=== PATIENT | male | born 1975 | race Caucasian/White ===

== ENCOUNTER 2023-07-10 20:17 | Emergency (ER) | payer BC, SELFPAY ==
[2023-07-10 20:25] VITALS: BP 171/89
--- NOTE | 2023-07-10 21:28 | ED.GENMED ---
History of Present Illness
General
Chief Complaint: Musculo-Skeletal Complaint
Source: patient
Exam Limitations: none
Time Seen by Provider: 07/10/23 21:13
Travel History
Have you had any contact with someone who has COVID-19?: No
Do you have any symptoms of coronavirus? Fever > 100 degrees, chills, cough, shortness of breath, sore throat, loss of taste or smell, muscle aches, or headache?: No
History of Present Illness
History of Present Illness:
48-year-old male who presents with swelling and pain to the right knee. The patient states he was skiing in [place] about a month ago. He woke up the next day and he had a severely swollen knee. He was able to get home and tried to rest it with
ice and compression but states he did not do it long enough. The pain has been persistent. He states he tried to do a little bit squats and walk at the pain got worse and the knee blew up again. He provides a picture that shows a swollen patient
states it hurts mostly on the lateral aspect. He denies fevers. No vomiting.
Past History
Past History
ED Past Medical History: None
ED Past Surgical History: Orthopedic
Phy Exam
Physical Exam
Physical Exam:
CONSTITUTIONAL Vital signs reviewed, Patient alert and oriented to person, place and time. Well-appearing
HEAD atraumatic, normocephalic.
EYES eyelids normal to inspection, Extraocular muscles intact, Conjunctiva normal, Sclera normal.
NECK normal range of motion, Trachea midline, no jugular venous distention.
RESP no respiratory distress
BACK No obvious deformities
UPPER EXTREMITY Gross Range of motion normal, gross motor strength normal
LOWER EXTREMITY Gross motor strength normal. Right knee effusion noted, no warmth, no redness. No pain with valgus stress. No significant anterior drawer laxity
NEURO Speech normal, No focal motor deficits include, Pesotum coma scale 15, Memory normal, Cranial Nerves intact to screening exam.
SKIN Skin warm, dry, and normal in color.
PSYCHIATRIC Patient oriented to person place and time, Normal affect.
Course
Orders/Labs/Results
Orders:
Orders
07/10/23 21:28
Knee, Right 4 or More Views [CR Knee- Right 4 Or More View*] Urgent
Comment:
Reason For Exam: injury, swelling
07/10/23 23:55
Knee Immobilizer Right-Treatme ONCE
Vital Signs
Initial and Last Documented VS:
Initial Vital Signs
Temp Pulse Resp BP Pulse Ox
98.1 F 97 18 171/89 97
07/10/23 20:25 07/10/23 20:25 07/10/23 20:25 07/10/23 20:25 07/10/23 20:25
Last Documented Vital Signs
Temp Pulse Resp BP Pulse Ox
98.1 F 97 18 171/89 97
07/10/23 20:25 07/10/23 20:25 07/10/23 20:25 07/10/23 20:25 07/10/23 20:25
MDM/Problems Addressed
MDM/Problems Addressed:
Knee injury, knee effusion
*Radiology
Radiology exam reviewed: preliminary read by ED provider (No fracture identified)
*Pulse Oximetry
Patient hypoxic: no
*Critical Care Note
Total Time (30-74mins, 75-104mins- exclusive of procedures): Not Applicable
Data Reviewed
Source: patient
Patient Management
Escalation/DeEscalation of care consider admission/obs:
Outpatient orthopedic follow-up recommended. Knee immobilizer, crutches. Also recommended rest, ice and elevation
ED Attending Note
-
Portions of this chart may have been created with voice recognition software.� Occasional wrong word or��sound alike� substitutions may have occurred due to the inherent limitations of voice recognition software.
Discharge Plan
Departure
Patient Disposition: Home (Routine Discharge)
Date of Disposition: 07/10/23
Time of Disposition: 23:56
Patient with high blood pressure during this ER visit?: Yes
Discharge Problem:
Injury of knee
Instructions: Internal Derangement of the Knee (DC), Knee Immobilizer (DC), Swollen Joints (DC), BLOOD PRESSURE
Prescriptions:
No Action
Oxycodone
1 tab PO PRN PRN (Reason: pain)
Referrals:
Venu Gruber MD [Active] -
UNKNOWN - PT DOES,NOT KNOW [Family Provider] -
Activity Restrictions/Additional Instructions:
Please see orthopedics in the next 1 week for follow-up and reevaluation. Return immediately for fever, redness, increased swelling or any other concerns. Please ice it and rest your injured knee. Further workup should include an MRI
Interventions
Interventions:
*Risk Screen - Suicide Last Done: 07/10/23 20:25
*General Assessment Last Done: 07/10/23 20:25
*Neglect/Abuse Screening Last Done: 07/10/23 20:25
*ED COVID-19 Vaccine History Last Done: 07/10/23 20:25
ED-Musculoskeletal Assessment Last Done: 07/10/23 21:21
[2023-07-11 00:18] VITALS: BP 155/94
[2023-07-11 00:21] VITALS: BP 155/94
== END 2023-07-11 00:21 | disposition home or self-care (01) ==
LOC: EMR 20:17
PROVIDERS: EMERGENCY PHYSICIAN Emergency Medicine
DX: S89.91XA Unspecified injury of right lower leg, initial encounter (principal); X58.XXXA Exposure to other specified factors, initial encounter
CPT/HCPCS: 99283; 73564

== ENCOUNTER 2024-04-16 18:35 | Inpatient (IN) | payer BC, SELFPAY ==
[2024-04-16] VITALS (12 sets, daily range): BP systolic 93–161; BP diastolic 63–96; BMI 24.7
--- NOTE | 2024-04-16 11:43 | ED.GENMED ---
History of Present Illness
<HENRIETTA Thakkar - Last Filed: 04/16/24 15:59>
General
Chief Complaint: Abdominal Symptoms
Source: patient
Exam Limitations: none
Time Seen by Provider: 04/16/24 11:43
Nursing documentation reviewed up to this point in time: agreed with
History of Present Illness
History of Present Illness:
48-year-old male presents to the ER for evaluation of abdominal pain that woke him up around 5 AM. He reports pain is across his lower abdomen. He feels that he has to move his bowels but is unable to do so. He last moved his bowels yesterday.
He does have a history of alcohol use and stopped drinking on . He was diagnosed with' fibrosis of the liver.' He is on chronic oxycodone for history of spinal surgery/back pain.
Past History
<HENRIETTA Thakkar - Last Filed: 04/16/24 15:59>
Past History
ED Past Medical History: None
ED Past Surgical History: Orthopedic
Review of Systems
<HENRIETTA Thakkar - Last Filed: 04/16/24 15:59>
Review of Systems
Allergies reviewed?: Yes
All Other Systems: ROS reviewed and negative except as documented in HPI and ROS
Constitutional: Reports no symptoms; Denies fever, fatigue or chills
Respiratory: Reports no symptoms
Cardiac: Reports no symptoms
ABD/GI: Reports abdominal pain; Denies nausea or vomiting
: Reports no symptoms
Musculoskeletal: Reports no symptoms
Skin: Reports no symptoms
Neurological: Reports no symptoms
Psychiatric: Reports no symptoms
Phy Exam
<HENRIETTA Thakkar - Last Filed: 04/16/24 15:59>
General Physical Exam
General Presentation: no apparent distress
General age: appears stated age
General Skin: warm and dry
General Habitus: normal
General Mental: alert
General Hydration: appears well hydrated
Gastrointestinal Exam
Gastrointestinal Exam: non tender, soft and other (tender lower abdominal region )
Neurological Exam
Neurological Exam: alert and oriented x3
Musculoskeletal Exam
Musculoskeletal Exam: full ROM
Skin Exam
Skin Exam: normal color and warm/dry
Psychiatric Exam
Psychiatric Exam: normal mood/affect
Course
<HENRIETTA Thakkar - Last Filed: 04/16/24 15:59>
Orders/Labs/Results
Orders:
Orders
04/16/24 11:50
Urinalysis Reflex To Culture Urgent
Date Specimen was Collected: 04/16/24
Time Specimen was Collected: 15:02
Iohexol [Omnipaque] See Protocol PO NOW STA
04/16/24 11:52
CT Abd/pel W Iv And Oral Contr Urgent
Comment:
Reason For Exam: lower abd pain
IV Insert/Care/Rem.- Treatment PRN
0.9% Sodium Chloride 1000 ml [Nss] 1,000 ml IV BOLUS
04/16/24 11:53
HYDROmorphone [Dilaudid] 0.5 mg IV NOW STA
Ondansetron Injectable [Zofran] 4 mg IV NOW STA
04/16/24 11:55
Complete Blood Count/With Diff Urgent
Comprehensive Metabolic Panel Urgent
Lipase Urgent
04/16/24 13:36
Ondansetron Injectable [Zofran] 4 mg IV NOW STA
04/16/24 13:37
Ketorolac [Toradol] 15 mg IV NOW STA
04/16/24 15:01
Piperacillin/Tazo 3.375 Gram [Zosyn] 3.375 gram in 50 ml IV NOW
04/16/24 15:57
HYDROmorphone [Dilaudid] 1 mg IV NOW STA
Abnormal Lab Results
04/16/24
11:55
WBC 12.7 H 10^3/uL
(4.8-10.8)
Abs Immat Gran (auto) 0.1 H 10^3/uL
(0-0.05)
Absolute Neuts (auto) 11.2 H 10^3/uL
(1.4-6.5)
Absolute Lymphs (auto) 0.8 L 10^3/uL
(1.2-3.4)
Neutrophils % 88.5 H %
(42.2-75.2)
Lymphocytes % 6.5 L %
(20.5-51.1)
Carbon Dioxide 19 L mmol/L
(22-30)
Glucose 242 H mg/dl
(70-99)
Calcium 10.4 H mg/dl
(8.4-10.2)
Alkaline Phosphatase 221 H U/L
(38-126)
Albumin 5.2 H g/dl
(3.5-5.0)
04/16/24 11:55
04/16/24 11:55
Vital Signs
Initial and Last Documented VS:
Initial Vital Signs
Temp Pulse Resp BP Pulse Ox
99.1 F 100 20 118/63 98
04/16/24 11:25 04/16/24 11:25 04/16/24 11:25 04/16/24 11:25 04/16/24 11:25
Last Documented Vital Signs
Temp Pulse Resp BP Pulse Ox
99.0 F 86 20 151/90 100
04/16/24 15:28 04/16/24 15:28 04/16/24 14:00 04/16/24 15:28 04/16/24 15:28
Motor Lodge Clerk consulted with Physician
Motor [employer] Clerk consulted with physician?: Yes
Name of Physician Consulted: Wan
<Annetta Blas MD - Last Filed: 04/16/24 12:07>
Orders/Labs/Results
Orders:
Orders
04/16/24 11:50
Urinalysis Reflex To Culture Urgent
Date Specimen was Collected: 04/16/24
Time Specimen was Collected: 15:02
Iohexol [Omnipaque] See Protocol PO NOW STA
04/16/24 11:52
CT Abd/pel W Iv And Oral Contr Urgent
Comment:
Reason For Exam: lower abd pain
IV Insert/Care/Rem.- Treatment PRN
0.9% Sodium Chloride 1000 ml [Nss] 1,000 ml IV BOLUS
04/16/24 11:53
HYDROmorphone [Dilaudid] 0.5 mg IV NOW STA
Ondansetron Injectable [Zofran] 4 mg IV NOW STA
04/16/24 11:55
Complete Blood Count/With Diff Urgent
Comprehensive Metabolic Panel Urgent
Lipase Urgent
04/16/24 13:36
Ondansetron Injectable [Zofran] 4 mg IV NOW STA
04/16/24 13:37
Ketorolac [Toradol] 15 mg IV NOW STA
04/16/24 15:01
Piperacillin/Tazo 3.375 Gram [Zosyn] 3.375 gram in 50 ml IV NOW
04/16/24 15:57
HYDROmorphone [Dilaudid] 1 mg IV NOW STA
Abnormal Lab Results
04/16/24
11:55
WBC 12.7 H 10^3/uL
(4.8-10.8)
Abs Immat Gran (auto) 0.1 H 10^3/uL
(0-0.05)
Absolute Neuts (auto) 11.2 H 10^3/uL
(1.4-6.5)
Absolute Lymphs (auto) 0.8 L 10^3/uL
(1.2-3.4)
Neutrophils % 88.5 H %
(42.2-75.2)
Lymphocytes % 6.5 L %
(20.5-51.1)
Carbon Dioxide 19 L mmol/L
(22-30)
Glucose 242 H mg/dl
(70-99)
Calcium 10.4 H mg/dl
(8.4-10.2)
Alkaline Phosphatase 221 H U/L
(38-126)
Albumin 5.2 H g/dl
(3.5-5.0)
04/16/24 11:55
04/16/24 11:55
Vital Signs
Initial and Last Documented VS:
Initial Vital Signs
Temp Pulse Resp BP Pulse Ox
99.1 F 100 20 118/63 98
04/16/24 11:25 04/16/24 11:25 04/16/24 11:25 04/16/24 11:25 04/16/24 11:25
Last Documented Vital Signs
Temp Pulse Resp BP Pulse Ox
99.0 F 86 20 151/90 100
04/16/24 15:28 04/16/24 15:28 04/16/24 14:00 04/16/24 15:28 04/16/24 15:28
<HENRIETTA Thakkar - Last Filed: 04/16/24 15:59>
MDM/Problems Addressed
Differential Diagnosis Includes:
Not limited to diverticulitis, appendicitis, obstruction constipation
MDM/Problems Addressed:
48-year-old male presented to the ER complaining of abdominal pain. Patient presents very uncomfortable nonspecific general abdominal tenderness. He denies any recent fever or chills. He does have a history of chronic pain related to his back and
is on narcotics. 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
Patient presents with a temp of 99.1 denies any fever at home white count minimally elevated at 12.7.
Patient's blood sugar was found to be elevated to 42 he is not a diabetic his lipase is normal CAT scan however shows acute perforation of the sigmoid colon verbally reported by radiology with air and stool outside the colon. discussed with
Wan . IV Zosyn ordered. d/c with Colorectal surg DR Salazar.
<HENRIETTA Thakkar - Last Filed: 04/16/24 15:59>
*Radiology
Radiology exam reviewed: radiology read reviewed
*Pulse Oximetry
Patient hypoxic: no
*Critical Care Note
Total Time (30-74mins, 75-104mins- exclusive of procedures): Not Applicable
<HENRIETTA Thakkar - Last Filed: 04/16/24 15:59>
Patient Management
Discussion with other providers: Operations Research Group Manager (Colorectal surg, DR Salzaar )
ED Attending Note
<HENRIETTA Thakkar - Last Filed: 04/16/24 15:59>
-
Portions of this chart may have been created with voice recognition software.� Occasional wrong word or��sound alike� substitutions may have occurred due to the inherent limitations of voice recognition software.
<Annetta Blas MD - Last Filed: 04/16/24 12:07>
ED Attending Note
Patient seen and examined by attending physician: Yes
I performed the substantive portion of visit, reviewed & personally made and approve the management plan that is documented in note by myself or LIZ.: Yes
ED Attending Note:
Patient is lying on his side, moaning and screaming in pain. He is in no respiratory distress. He appears nontoxic. Awaiting blood work and CT.
Discharge Plan
Departure
Patient Disposition: Admit
Date of Disposition: 04/16/24
Time of Disposition: 15:58
Admit to: Med/Surg
Admit to doctor: hospitalist
Presentation/result/management discussed w/ accepting MD/DO: Hospitalist
Patient with high blood pressure during this ER visit?: Yes
Condition: Fair
Covid-19: Not Applicable
Discharge Problem:
Perforation of sigmoid colon
Prescriptions:
No Action
oxycodone 5 mg tablet
5 mg PO Q4HPRN PRN (Reason: pain - max dose 30mg/day)
Rx Instructions:
04/16/24: filled #180 tablets/30 days upply on 04/10/24 at [id number]
Referrals:
UNKNOWN - PT DOES,NOT KNOW [Family Provider] -
Interventions
Interventions:
*Risk Screen - Suicide Last Done: 04/16/24 12:00
*General Assessment Last Done: 04/16/24 11:25
*Neglect/Abuse Screening Last Done: 04/16/24 12:00
*ED COVID-19 Vaccine History Last Done: 04/16/24 12:00
KD-Applmz-Klucfknjsj Assessment Last Done: 04/16/24 12:00
Discharge Date and Time
Print Language: FRISIAN
[2024-04-16] MEDS: NSS 1000 IV ×2 (12:03→20:31)
[2024-04-16] MEDS: ZOFRAN 4 MG IV ×3 (12:04→19:50)
[2024-04-16] MEDS: DILAUDID 0.5 MG IV (12:07)
[2024-04-16] MEDS: OMNIPAQUE 50 ML PO (12:08)
[2024-04-16 12:12] LABS: % Basophils 0.5 % (0-2); % Eosinophils 0.2 % (0-6); % Immature Granulocytes 0.4 % (0-0.5); % Lymphocytes 6.5 % (20.5-51.1); % Monocytes 3.9 % (1.7-9.3); % Neutrophils 88.5 % (42.2-75.2); Absolute Basophils 0.1 10^3/uL (0-0.2); Absolute Immature Granulocytes 0.1 10^3/uL (0-0.05); Absolute Lymphocytes 0.8 10^3/uL (1.2-3.4); Absolute Monocytes 0.5 10^3/uL (0.1-0.6); Absolute Neutrophils 11.2 10^3/uL (1.4-6.5); Hematocrit 42.9 % (39.0-52.0); Hemoglobin 14.8 g/dL (13.0-18.0); Mean Corp Hgb Conc. 34.5 g/dL (33.0-37.0); Mean Corpuscular Hgb 29.8 pg (27.0-31.0); Mean Corpuscular Volume 86.3 fL (80.0-94.0); Mean Platelet Volume 8.9 fL (7.4-10.4); Nucleated Red Blood Cells % 0 % (-); Platelet Count 363 10^3/uL (130-400); Red Blood Cell Count 4.97 10^6/uL (4.70-6.10); Red Cell Dist. Width 11.5 % (11.5-14.5); White Blood Cell Count 12.7 10^3/uL (4.8-10.8)
[2024-04-16 12:21] LABS: ALT (SGPT) 43 U/L (0-50); AST (SGOT) 34 U/L (17-59); Albumin 5.2 g/dl (3.5-5.0); Alkaline Phosphatase 221 U/L (38-126); Blood Urea Nitrogen 16 mg/dl (9-20); Calcium 10.4 mg/dl (8.4-10.2); Carbon Dioxide 19 mmol/L (22-30); Chloride 101 mmol/L (98-107); Glucose 242 mg/dl (70-99); Lipase 90 U/L (23-300); Sodium 140 mmol/L (135-145); Total Bilirubin 1.1 mg/dl (0.2-1.3); eGFR > 60.00
[2024-04-16] MEDS: TORADOL 15 MG IV ×2 (13:42→19:13)
[2024-04-16] MEDS: ZOSYN 50 IV (15:21)
--- NOTE | 2024-04-16 16:03 | HPS.HSE ---
Family Physician
-
Family Physician: NOT KNOW UNKNOWN - PT DOES
Chief Complaint
-
Abdominal pain
History of Present Illness
48-year-old male who presents to the ER with the acute onset of lower abdominal pain that began at 5 AM. Yesterday he did not feel well and had no appetite. At 5 AM he felt like he had to move his bowels and since that time the pain has
progressively worsened and is now diffuse. He has had chills and retching. He underwent a colonoscopy and EGD many years ago for GI bleeding and no source was found. He states he had thrombocytopenia at that time. He has a history of a fibrotic
liver but denies cirrhosis. There is no history of varices and he denies any bleeding problems or easy bruisability. He was a heavy drinker for the past couple of years but quit since . His bowels are usually regular with occasional
constipation.
Medical History
Past Medical History
Past Medical History: Reports Other (Chronic back pain)
Past Surgical History: Reports Orthopedic (Spinal surgery for lower back pain)
Social History
Alcohol: Former
Personal: Single
Family History
Family History: Not pertinent
Allergies / Home Medications
Allergies reflects when Allergies were last updated in [facility].
Home Medications with original date entered in [facility]
Allergy/Medication List:
No known drug allergies
Active medications:
Oxycodone 5 mg p.o. every 4 hours as needed back pain
Review of Systems
-
History Source: Patient
Constitutional: Reports See HPI
Physical Exam
Vital Signs
Vital Signs
Temp Pulse Resp BP Pulse Ox
99.0 F 86 20 151/90 100
04/16/24 15:28 04/16/24 15:28 04/16/24 14:00 04/16/24 15:28 04/16/24 15:28
Physical Exam
General: Well Developed, Well Nourished, Appears in Distress and Pain
HEENT: NormoCephalic and Anicteric
Respiratory: Clear
Cardiac: Regular Rhythm
GI: Tender (diffusely with peritoneal signs) and Distended
Musculoskeletal: No Cyanosis and No Edema
Skin: Warm
Neuro: Awake and Alert
Psych: Anxious
Laboratory Results
-
04/16/24 11:55
04/16/24 11:55
Laboratory Results
Total Bilirubin 1.1 mg/dl (0.2-1.3) 04/16/24 11:55
AST 34 U/L (17-59) 04/16/24 11:55
ALT 43 U/L (0-50) 04/16/24 11:55
Alkaline Phosphatase 221 U/L (38-126) H 04/16/24 11:55
Lipase 90 U/L (23-300) 04/16/24 11:55
Data Reviewed
-
CT Scan: Image Personally Visualized and interpreted, Report Reviewed by me and Discussed with Patient
Lab Data: Labs Reviewed by me and Discussed with Patient
Impression/Plan
-
IMPRESSION: Perforated sigmoid colon, most likely due to stercoral colitis but possibly diverticulitis and less likely malignancy or IBD.
At present he has peritoneal signs and I recommend surgery. Without surgery there is a risk of worsening infection and . He has a significant pain and wishes to have surgery as soon as possible. I reviewed the operation, i.e. laparotomy with
bowel resection and probable temporary colostomy. Risks include, but are not limited to, bleeding, infection, adhesions, hernias, injury to other structures, DVT, stoma complications, anastomotic leak if one is made, positioning injuries,
cardiopulmonary complications, and the risks of anesthesia. I also reviewed the typical recovery both in and out of the hospital as well as the functional results. All questions answered and he wishes to proceed.
PLAN: Operating room as soon as possible. Antibiotics have been given.
[2024-04-16] MEDS: DILAUDID 1 MG IV ×2 (16:09→21:24)
--- NOTE | 2024-04-16 19:10 | W.IMMPOSTOP ---
Addendum entered and electronically signed by Kamaljit Vera MD 04/16/24 19:18:
Patient's sister Cara updated via phone conversation.
Original Note:
Surgical Immed Post Op Note
-
Primary Surgeon: Purnima Vera MD
Assisting Surgeon: Vasiliy Santiago MD
Pre-op Diagnosis: perforated diverticulitis vs stercoral colitis
Post-op Diagnosis: same
Procedure Performed: Les's resection (sigmoidectomy with colostomy)
Anesthesia Type: general plus local
Specimen / Cultures: 1) abdominal fluid cultures 2) sigmoid colon(stitch marking proximal)
Estimated Blood Loss: 50 cc
Complications: no immediate
Operative Findings: perforated mid sigmoid with feculent peritonitis
#19 Alejandro in pelvis.
NGT in stomach (confirmed in OR).
[place] in bladder.
Sending to med surg.
[2024-04-16] MEDS: DILAUDID 0.25 MG IV (19:34)
[2024-04-16 23:47] LABS: Glucose - Point of Care 174 mg/dl (70-99)
[2024-04-17] VITALS (7 sets, daily range): BP systolic 99–143; BP diastolic 54–93; PULSE 81; BMI 24.2
[2024-04-17] MEDS: ZOSYN 50 IV ×4 (00:02→19:09)
[2024-04-17] MEDS: CHLORASEPTIC/SORE THROAT SPRAY 1 SPRAY PO (00:23)
[2024-04-17] MEDS: TORADOL 15 MG IV ×4 (01:07→20:08)
[2024-04-17] MEDS: DILAUDID 1 MG IV ×3 (01:45→19:18)
[2024-04-17] MEDS: NSS 1000 IV ×3 (03:05→22:34)
[2024-04-17] MEDS: DILAUDID 0.5 MG IV (06:43)
[2024-04-17 07:55] LABS: Hematocrit 37.1 % (39.0-52.0); Hemoglobin 12.8 g/dL (13.0-18.0); Mean Corp Hgb Conc. 34.5 g/dL (33.0-37.0); Mean Corpuscular Hgb 30.5 pg (27.0-31.0); Mean Corpuscular Volume 88.5 fL (80.0-94.0); Red Blood Cell Count 4.19 10^6/uL (4.70-6.10); Red Cell Dist. Width 11.8 % (11.5-14.5); White Blood Cell Count 8.7 10^3/uL (4.8-10.8)
[2024-04-17] MEDS: TORADOL IV (07:58)
[2024-04-17 08:29] LABS: Band Neutrophils 55 % (0-3); Lymphocytes 8 % (20-51); Mean Platelet Volume 9.3 fL (7.4-10.4); Metamyelocytes 7 % (-); Monocytes 3 % (2-9); Myelocytes 1 % (-); Platelets Checked Yes; Segmented Neutrophils 26 % (42-75)
[2024-04-17 08:30] LABS: Normal RBC Morphology Yes; Platelet Count 243 10^3/uL (130-400); Total Cells Counted 100
[2024-04-17 08:36] LABS: Blood Urea Nitrogen 15 mg/dl (9-20); Calcium 8.3 mg/dl (8.4-10.2); Carbon Dioxide 24 mmol/L (22-30); Chloride 105 mmol/L (98-107); Estimated Creatinine Clearance 108 ml/min; Glucose 149 mg/dl (70-99); Magnesium 2.3 mg/dl (1.6-2.3); Potassium 4.2 mmol/L (3.5-5.1); Sodium 140 mmol/L (135-145); eGFR > 60.00
[2024-04-17] MEDS: NSS (PRESERVATIVE FREE) 10 ML IV (10:47)
[2024-04-17] MEDS: PROTONIX IV 40 MG IV (10:48)
[2024-04-17] MEDS: ANESTHETIC LOZENGE 1 LOZENGE PO ×2 (10:54→19:18)
--- NOTE | 2024-04-17 12:52 | W.PN.CRS1 ---
Addendum entered and electronically signed by Jase Salazar MD 04/18/24 00:37:
I saw and examined the patient the morning of 04/17/24.
The LABOR SERVICE REPRESENTATIVE's note was reviewed and I agree with the note.
-ABD soft, mildly distended, appropriately tender near midline incision and ostomy; ostomy dark red/purple; BOB�120 mL dark serosanguineous
Original Note:
Today's Communication / Plan
-
NPO/NGT/Analgesics/IVF
Assessment/Plan
-
48 yo male on chronic opioids for back pain who presented with perforated colon/peritonitis from diverticulitis vs stercoral colitis now POD #1 Les's procedure
AFVSS
NGT with low outputs, await evidence of bowel recovery
Mild acute anemia noted likely secondary to hemodilution with expected intraoperative losses
--Continue NPO with NGT to wall suction
--Analgesics/antiemetics prn
--IV PPI for GI ppx while NGT in place
--Trend labs
--IVF while NPO
--Void trial once more mobile, likely tomorrow
--OOB/Ambulate. PT eval.
--SCD's/Lovenox for VTE ppx
Subjective Data
Procedure
04/16/24 Les's resection (sigmoidectomy with colostomy)
Subjective Data
Date of Service: April 17, 2024
Patient seen and examined at bedside with Dr. Salazar. Denies n/v. Notes abdominal pain present but thus far well controlled.
Objective Data
-
Vital Signs
Temp Pulse Resp BP Pulse Ox
98.0 F 75 18 123/75 95
04/17/24 12:32 04/17/24 12:32 04/17/24 12:32 04/17/24 12:32 04/17/24 12:32
Intake & Output
04/16/24 04/17/24 04/18/24
06:59 06:59 06:59
Intake Total 90 / 90
Output Total 595 / 595
Balance -505 / -505
Intake:
Amount instilled into GI Tube ( 90 / 90
Total)
[place] Sump 90 / 90
Output:
Drain Output (Total) 120 / 120
Right Abdomen 120 / 120
Gastrointestinal tube output ( 175 / 175
Total)
[place] Sump 175 / 175
Urine, [place] 300 / 300
Lab Results
04/17/24 05:59
04/17/24 05:59
Physical Exam
-
General: No Acute Distress
Abdomen: Soft, Distended (mild), Tender (generalized), No Bowel Movement, No Flatus and Other (stoma pink/viable)
Skin: Warm and Dry
Wound: Dressing Dry
[2024-04-17] MEDS: LOVENOX 40 MG SC (17:46)
[2024-04-17] MEDS: MYCAMINE 105 MG IV (17:46)
[2024-04-18] MEDS: ZOSYN 50 IV ×4 (00:25→17:36)
[2024-04-18] MEDS: TORADOL 15 MG IV ×2 (01:34→09:06)
[2024-04-18 02:56] VITALS: BP 114/71
--- NOTE | 2024-04-18 04:03 | PTCARENOTE ---
Pt reporting he has feeling activity in his colostomy, scant serosanguineous output in bag + BS. NGT patent throughout shift.
[2024-04-18] MEDS: DILAUDID 0.5 MG IV (04:19)
[2024-04-18 05:35] LABS: Blood Urea Nitrogen 18 mg/dl (9-20); Calcium 8.3 mg/dl (8.4-10.2); Carbon Dioxide 26 mmol/L (22-30); Chloride 107 mmol/L (98-107); Estimated Creatinine Clearance 108 ml/min; Glucose 115 mg/dl (70-99); Potassium 3.8 mmol/L (3.5-5.1); Sodium 142 mmol/L (135-145); eGFR > 60.00
[2024-04-18 05:42] LABS: Hematocrit 30.5 % (39.0-52.0); Mean Corp Hgb Conc. 32.8 g/dL (33.0-37.0); Mean Corpuscular Hgb 29.7 pg (27.0-31.0); Mean Corpuscular Volume 90.5 fL (80.0-94.0); Red Blood Cell Count 3.37 10^6/uL (4.70-6.10); Red Cell Dist. Width 11.9 % (11.5-14.5); White Blood Cell Count 7.3 10^3/uL (4.8-10.8)
[2024-04-18 06:00] VITALS: BMI 24.5
[2024-04-18] MEDS: NSS 1000 IV ×2 (06:04→15:11)
[2024-04-18 07:42] LABS: Mean Platelet Volume 8.9 fL (7.4-10.4); Platelet Count 180 10^3/uL (130-400)
[2024-04-18 07:55] VITALS: BP 141/80
[2024-04-18] MEDS: NSS (PRESERVATIVE FREE) 10 ML IV ×2 (09:05→21:22)
[2024-04-18] MEDS: PROTONIX IV 40 MG IV ×2 (09:06→21:21)
[2024-04-18] MEDS: DILAUDID 1 MG IV ×4 (10:11→21:26)
[2024-04-18 11:08] VITALS: BP 143/76
--- NOTE | 2024-04-18 11:10 | W.PN.CRS1 ---
Addendum entered and electronically signed by Jase Salazar MD 04/18/24 19:01:
I saw and examined the patient.
The PRIVATE BRANCH EXCHANGE OPERATOR's note was reviewed and I agree with the note.
Original Note:
Today's Communication / Plan
-
NPO/NGT/Pain management
Assessment/Plan
-
48 yo male on chronic opioids for back pain who presented with perforated colon/peritonitis from diverticulitis vs stercoral colitis now POD #1 Les's procedure
AFVSS
WBC normalized
Acute anemia present likely secondary to hemodilution and expected operative losses. Some coffee ground drainage noted in NGT as well.
NGT with low outputs, await evidence of bowel recovery
Mild acute anemia noted likely secondary to hemodilution with expected intraoperative losses
OR wound cx with ecoli, enterococcus, strep and yeast
--Continue NPO with NGT to wall suction
--Analgesics/antiemetics prn
--C/W IV abx with zosyn and micafungin
--Hold NSAID and start ATC Ofirmev
--IV PPI BID for GI ppx while NGT in place
--Trend labs
--IVF while NPO
--Void trial today
--Wound/ostomy nurse consult for stoma care
--OOB/Ambulate. PT eval.
--SCD's/Lovenox for VTE ppx
Subjective Data
Procedure
04/16/24 Les's resection (sigmoidectomy with colostomy)
Subjective Data
Date of Service: April 18, 2024
Patient seen and examined at bedside. Denies n/v. Pain well controlled but uncomfortable with movement.
Objective Data
-
Vital Signs
Temp Pulse Resp BP Pulse Ox
97.7 F 62 18 141/80 100
04/18/24 07:55 04/18/24 07:55 04/18/24 07:55 04/18/24 07:55 04/18/24 07:55
Intake & Output
04/17/24 04/18/24 04/19/24
06:59 06:59 06:59
Intake Total 90 / 90 3230 / 3230
Output Total 595 / 595 1260 / 1260
Balance -505 / -505 1969 / 1969
Intake:
IV fluids (Total) 2900 / 2900
IV piggybacks 150 / 150
Amount instilled into GI Tube ( 90 / 90 180 / 180
Total)
[place] Sump 90 / 90 180 / 180
Output:
Drain Output (Total) 120 / 120 110 / 110
Right Abdomen 120 / 120
Right [place] 110 / 110
Gastrointestinal tube output ( 175 / 175 600 / 600
Total)
[place] Sump 175 / 175 600 / 600
Urine, [place] 300 / 300 550 / 550
Lab Results
04/18/24 04:59
Physical Exam
-
General: No Acute Distress
Abdomen: Soft, Distended (mild), Tender (generalized), Bowel Movement (some small hard stool balls in appliance), No Flatus (appliance flat) and Other (stoma pink/viable)
Skin: Warm and Dry
Wound: Dressing Dry and Other (BOB with cloudy SSF)
[2024-04-18 12:04] LABS: Hematocrit 29.5 % (39.0-52.0)
--- NOTE | 2024-04-18 15:41 | CM ---
CM met with pt bedside
Pt's legal residence is in [place]- commutes back and forth between [place] and [place] often
He mostly stays locally at mother's house in [place] to provide care to her
Home is located at [address] [place] [address]
Home is a 2SH with 2STE, pt has a 1st floor set up and notes he sleeps on the couch so he can care for his mother
Pt is independent at baseline- denies use of DMEs
Very active-snowboarder
Currently not employed to due caregiving responsibilities
PCP- Dr Posada ([facility]- recently had visit)
Rx- [facility]
Pt has family friend providing care to mother currently
No POAs- sister is her primary contact and a nurse in [place]
Pt with new ostomy
Anticipate need for VN
Notes he has a [facility] Medicaid plan- concerned about coverage for local providers
CM to assist with VN support if needed on dc
Discharge Disposition- home, anticipate with VN, new ostomy
[2024-04-18 15:51] VITALS: BP 134/79
[2024-04-18] MEDS: MYCAMINE 105 MG IV (16:11)
[2024-04-18] MEDS: LOVENOX 40 MG SC (17:36)
[2024-04-18] MEDS: CHLORASEPTIC/SORE THROAT SPRAY 1 SPRAY PO (21:21)
[2024-04-18 23:00] VITALS: BP 139/76
[2024-04-19] MEDS: ZOSYN 50 IV ×5 (00:19→23:48)
[2024-04-19] MEDS: NSS 1000 IV ×3 (00:19→19:32)
[2024-04-19] MEDS: DILAUDID 1 MG IV ×7 (01:06→20:57)
[2024-04-19] MEDS: NSS IV (02:20)
[2024-04-19 06:00] VITALS: BMI 25.0
[2024-04-19 07:25] VITALS: BP 120/62
[2024-04-19] MEDS: PROTONIX IV 40 MG IV ×2 (08:04→19:33)
[2024-04-19] MEDS: NSS (PRESERVATIVE FREE) 10 ML IV ×2 (08:04→19:33)
[2024-04-19 09:38] LABS: Hematocrit 30.3 % (39.0-52.0); Hemoglobin 9.8 g/dL (13.0-18.0); Mean Corp Hgb Conc. 32.3 g/dL (33.0-37.0); Mean Corpuscular Hgb 29.3 pg (27.0-31.0); Mean Corpuscular Volume 90.4 fL (80.0-94.0); Mean Platelet Volume 9.3 fL (7.4-10.4); Platelet Count 201 10^3/uL (130-400); Red Blood Cell Count 3.35 10^6/uL (4.70-6.10); Red Cell Dist. Width 11.8 % (11.5-14.5)
[2024-04-19 09:57] LABS: Blood Urea Nitrogen 17 mg/dl (9-20); Calcium 8.3 mg/dl (8.4-10.2); Carbon Dioxide 21 mmol/L (22-30); Chloride 109 mmol/L (98-107); Estimated Creatinine Clearance 108 ml/min; Glucose 79 mg/dl (70-99); Potassium 3.9 mmol/L (3.5-5.1); Sodium 143 mmol/L (135-145); eGFR > 60.00
--- NOTE | 2024-04-19 11:38 | W.PN.CRS1 ---
Today's Communication / Plan
-
ngt clamping trial
Assessment/Plan
-
48 yo male on chronic opioids for back pain who presented with perforated colon/peritonitis from diverticulitis vs stercoral colitis now POD #2Hartmann's procedure
AFVSS
WBC normalized - 8.0
Hgb 9.8 (10.0)
NGT output 850ml
OR wound cx with ecoli, enterococcus, strep and yeast
--NGT clamping trial for 6 hours
--If NGT removed, remain NPO with chips
--Analgesics/antiemetics prn
--C/W IV abx with zosyn and micafungin
--Hold NSAID and start ATC Ofirmev
--IV PPI BID for GI ppx while NGT in place
--Trend labs
--IVF while NPO
--Wound/ostomy nurse consult for stoma care
--OOB/Ambulate. PT eval.
--SCD's/Lovenox for VTE ppx
--BOB drain until discharge
Subjective Data
Procedure
04/16/24 Les's resection (sigmoidectomy with colostomy)
Subjective Data
Date of Service: April 19, 2024
Patient states the pain is pretty 'bad'. He feels a little bloated. He is 'sore all over'. He denies nausea or vomiting. His colostomy has function.
Objective Data
-
Vital Signs
Temp Pulse Resp BP Pulse Ox
97.9 F 49 16 120/62 96
04/19/24 07:25 04/19/24 07:25 04/19/24 07:25 04/19/24 07:25 04/19/24 07:25
Intake & Output
04/18/24 04/19/24 04/20/24
06:59 06:59 06:59
Intake Total 3230 / 3230 3105 / 3105
Output Total 1260 / 1260 2200 / 2200
Balance 1969 / 1969 905 / 905
Intake:
Oral fluids 270 / 270
IV fluids (Total) 2900 / 2900 2350 / 2350
IV piggybacks 150 / 150 305 / 305
Amount instilled into GI Tube ( 180 / 180 180 / 180
Total)
Tomales Sump 180 / 180 180 / 180
Output:
Liquid stool amount 150 / 150
Colostomy 150 / 150
Drain Output (Total) 110 / 110 50 / 50
Right Oniel-Graham 110 / 110 50 / 50
Gastrointestinal tube output ( 600 / 600 850 / 850
Total)
Tomales Sump 600 / 600 850 / 850
Urine, [place] 550 / 550
Urine, Voided 1150 / 1150
Lab Results
04/19/24 08:34
04/19/24 08:34
Physical Exam
-
General: No Acute Distress and AOx3
Abdomen: Soft, Non Distended, Tender (mild throughout) and Other (colostomy warm and pink with function)
Skin: Warm and Dry
Incision: Clear, Dry, Intact
[2024-04-19 11:58] VITALS: BMI 25.0
--- NOTE | 2024-04-19 12:42 | PN.CDI ---
CDI
- -
CDI:
Physician Documentation Request
Admit Date: 04/16/24 18:35
Dear Colorectal,
Please review the following and provide your response in the progress notes.
Clinical Indicators:
- 04/18 Colorectal note 'Acute anemia present likely secondary to hemodilution and expected operative losses'
- 04/16 Post op note EBL 50ml
Laboratory Tests
04/16/24 04/17/24 04/18/24
11:55 05:59 04:59
Hgb 14.8 12.8 L 10.0 L D
04/18/24 04/19/24
11:52 08:34
Hgb 10.0 L 9.8 L
Please further specify the acute anemia:
Acute blood loss anemia
Acute blood loss anemia with hemodilution
Other
Use of terms such as suspected, likely, concern for, or probable (associated with a specific diagnosis that is being evaluated, monitored, or treated as if it exists) are acceptable and can be coded in the inpatient setting, when documented at the
time of discharge.
Thank you,
Chung Ferrer RN
CDI Specialist
Please use your independent medical judgment in providing your response.
--- NOTE | 2024-04-19 12:47 | PN.CDI ---
CDI
- -
CDI:
Physician Documentation Request
Admit Date: 04/16/24 18:35
Dear Colorectal,
Please review the following and provide your response in the progress notes.
Clinical Indicators:
- per H&P home medication Oxycodone 5mg for back pain
- 04/19 PN 'Major's procedure for sigmoid perforation, possibly diverticulitis versus stercoral'
- 'chronic opioids for back pain'
If possible, please provide further specificity as outlined below:
Opioid use with dependence
Opioid use
Other
Use of terms such as suspected, likely, concern for, or probable (associated with a specific diagnosis that is being evaluated, monitored, or treated as if it exists) are acceptable and can be coded in the inpatient setting, when documented at the
time of discharge.
Thank you,
Chung Ferrer RN
CDI Specialist
Please use your independent medical judgment in providing your response.
--- NOTE | 2024-04-19 13:02 | CM ---
Reviewed the chart notes and spoke with the patient at the bedside. Discussed with the patient that Medicaid only eligible for providers in the [place] area. Patient plans on going back to [place] for a few days each week. CM spoke with Jo WEEMS,
patient does not qualify for [place] Medicaid unless he discontinues [place] and had a valid [place] address. Patient informed. CM continues to be available to patient/family and is monitoring medical plan for needs at discharge.
Plan: Discharge to [place] home with VN support through [place] agency if needed.
[2024-04-19 14:24] VITALS: BP 150/85; PULSE 38; O2SAT 95
[2024-04-19 15:10] VITALS: BP 129/74
[2024-04-19] MEDS: MYCAMINE 105 MG IV (15:29)
[2024-04-19] MEDS: LOVENOX 40 MG SC (17:10)
[2024-04-19 23:00] VITALS: BP 149/76
[2024-04-20] MEDS: DILAUDID 1 MG IV ×6 (00:03→22:22)
[2024-04-20] MEDS: DILAUDID 0.5 MG IV (03:42)
[2024-04-20] MEDS: NSS 1000 IV ×2 (03:42→11:29)
[2024-04-20 05:42] VITALS: BMI 25.8
[2024-04-20] MEDS: ZOSYN 50 IV ×4 (06:08→23:17)
[2024-04-20 07:32] LABS: % Basophils 0.3 % (0-2); % Eosinophils 1.3 % (0-6); % Immature Granulocytes 1.3 % (0-0.5); % Monocytes 7.6 % (1.7-9.3); % Neutrophils 83.5 % (42.2-75.2); Absolute Eosinophils 0.1 10^3/uL (0-0.7); Absolute Immature Granulocytes 0.1 10^3/uL (0-0.05); Absolute Lymphocytes 0.5 10^3/uL (1.2-3.4); Absolute Monocytes 0.7 10^3/uL (0.1-0.6); Absolute Neutrophils 7.5 10^3/uL (1.4-6.5); Hematocrit 29.5 % (39.0-52.0); Hemoglobin 9.9 g/dL (13.0-18.0); Mean Corp Hgb Conc. 33.6 g/dL (33.0-37.0); Mean Corpuscular Hgb 29.6 pg (27.0-31.0); Mean Corpuscular Volume 88.1 fL (80.0-94.0); Mean Platelet Volume 9.6 fL (7.4-10.4); Nucleated Red Blood Cells % 0 % (-); Platelet Count 220 10^3/uL (130-400); Red Blood Cell Count 3.35 10^6/uL (4.70-6.10); Red Cell Dist. Width 11.9 % (11.5-14.5); White Blood Cell Count 8.9 10^3/uL (4.8-10.8)
[2024-04-20 07:48] LABS: Blood Urea Nitrogen 14 mg/dl (9-20); Carbon Dioxide 19 mmol/L (22-30); Chloride 107 mmol/L (98-107); Estimated Creatinine Clearance 124 ml/min; Glucose 82 mg/dl (70-99); Potassium 3.6 mmol/L (3.5-5.1); Sodium 139 mmol/L (135-145); eGFR > 60.00
[2024-04-20] MEDS: NSS (PRESERVATIVE FREE) 10 ML IV ×2 (07:59→20:18)
[2024-04-20] MEDS: PROTONIX IV 40 MG IV ×2 (07:59→20:18)
[2024-04-20 08:13] VITALS: BP 152/76
--- NOTE | 2024-04-20 11:21 | CM ---
Reviewed the chart notes and spoke with the patient at the bedside. NG tube removed. Diet advanced to clear liquid. Referral sent to a VN agency in [place], left voice message for call back. With no valid insurance in [place] patient is not eligible for
VN services in this area. CM continues to be available to patient/family and is monitoring medical plan for needs at discharge.
Plan: Discharge to home when medically stable. Wound/ostomy nurse consult for ostomy care to be placed per colorectal note.
--- NOTE | 2024-04-20 11:23 | W.PN.CRS1 ---
Today's Communication / Plan
-
Clear liquids
Assessment/Plan
-
48 yo male on chronic opioids for back pain who presented with perforated colon/peritonitis from diverticulitis vs stercoral colitis now POD # 3 Les's procedure
AFVSS
WBC normalized -8.9
Hgb 9.9 from 9.8
OR wound cx with ecoli, enterococcus, strep and yeast
--NG tube removed yesterday. Start on clear liquids.
--Analgesics/antiemetics prn
--C/W IV abx with zosyn and micafungin
--Trend labs
--Okay to decrease IV fluids if tolerates clears
--Wound/ostomy nurse consult for stoma care
--OOB/Ambulate. PT eval.
--SCD's/Lovenox for VTE ppx
--BOB drain until discharge
-Of note, the patient is on chronic opioids for pain. This is considered 'opioid use'
-Also, the patient's hemoglobin was 14.8 on admission and is now 9.9. This is considered 'acute blood loss anemia with hemodilution'.
Subjective Data
Procedure
04/16/24 Les's resection (sigmoidectomy with colostomy)
Subjective Data
Date of Service: April 20, 2024
Patient states he is very hungry. He had ice chips yesterday after the NG tube was removed and tolerated without difficulty. He is still in pain and requiring narcotics. He has no nausea or vomiting. He has been out of bed. He is having bowel
function.
Objective Data
-
Vital Signs
Temp Pulse Resp BP Pulse Ox
98.8 F 43 17 152/76 95
04/20/24 08:13 04/20/24 08:13 04/20/24 08:13 04/20/24 08:13 04/20/24 08:13
Intake & Output
04/19/24 04/20/24 04/21/24
06:59 06:59 06:59
Intake Total 3105 / 3105 1685 / 1685
Output Total 2200 / 2200 400 / 400
Balance 905 / 905 1285 / 1285
Intake:
Oral fluids 270 / 270 480 / 480
IV fluids (Total) 2350 / 2350 1000 / 1000
IV piggybacks 305 / 305 205 / 205
Amount instilled into GI Tube ( 180 / 180
Total)
Lares Sump 180 / 180
Output:
Liquid stool amount 150 / 150
Colostomy 150 / 150
Drain Output (Total) 50 / 50
Right Oniel-Graham 50 / 50
Gastrointestinal tube output ( 850 / 850
Total)
Lares Sump 850 / 850
Urine, Voided 1150 / 1150 400 / 400
Other:
Number of approximated LARGE 3
amounts of urine
Lab Results
04/20/24 06:36
04/20/24 06:36
Physical Exam
-
General: No Acute Distress and AOx3
Abdomen: Soft, Non Distended, Non Tender and Other (Colostomy warm and pink with function)
Skin: Warm and Dry
[2024-04-20 15:00] VITALS: BP 152/77
[2024-04-20 15:25] VITALS: BP 148/77; PULSE 51; O2SAT 96
[2024-04-20] MEDS: MYCAMINE 105 MG IV (15:56)
[2024-04-20] MEDS: LOVENOX 40 MG SC (17:01)
[2024-04-20 23:35] VITALS: BP 125/78
[2024-04-21] MEDS: NSS IV ×2 (00:35→06:57)
[2024-04-21] MEDS: ZOSYN 50 IV ×4 (05:13→23:30)
[2024-04-21] MEDS: DILAUDID 1 MG IV ×2 (05:13→17:52)
[2024-04-21 06:00] VITALS: BMI 26.0
[2024-04-21 06:58] LABS: Hemoglobin 11.2 g/dL (13.0-18.0); Mean Corpuscular Hgb 29.4 pg (27.0-31.0); Mean Platelet Volume 9.3 fL (7.4-10.4); Platelet Count 245 10^3/uL (130-400); Red Blood Cell Count 3.81 10^6/uL (4.70-6.10); Red Cell Dist. Width 11.8 % (11.5-14.5); White Blood Cell Count 8.9 10^3/uL (4.8-10.8)
[2024-04-21 07:21] LABS: Blood Urea Nitrogen 4 mg/dl (9-20); Calcium 8.1 mg/dl (8.4-10.2); Carbon Dioxide 24 mmol/L (22-30); Chloride 102 mmol/L (98-107); Estimated Creatinine Clearance > 125 ml/min; Glucose 126 mg/dl (70-99); Potassium 3.3 mmol/L (3.5-5.1); Sodium 137 mmol/L (135-145); eGFR > 60.00
[2024-04-21 07:52] VITALS: BP 149/84
[2024-04-21] MEDS: NSS (PRESERVATIVE FREE) 10 ML IV ×2 (08:28→20:50)
[2024-04-21] MEDS: PROTONIX IV 40 MG IV ×2 (08:28→20:51)
--- NOTE | 2024-04-21 08:51 | W.PN.CRS1 ---
Today's Communication / Plan
-
low residue
Assessment/Plan
-
48 yo male on chronic opioids for back pain who presented with perforated colon/peritonitis from diverticulitis vs stercoral colitis now POD #4 Les's procedure
AFVSS
WBC normalized -8.9
Hgb 11.2 from 9.9
OR wound cx with ecoli, enterococcus, strep and yeast
--Advance to a low residue diet
--Analgesics/antiemetics prn
--C/W IV abx with zosyn and micafungin
--Trend labs
--Okay to decrease IV fluids if tolerates clears
--Wound/ostomy nurse consult for stoma care - have asked to change this dressing this AM
--OOB/Ambulate. PT eval.
--SCD's/Lovenox for VTE ppx
--BOB drain until discharge
Subjective Data
Procedure
04/16/24 Les's resection (sigmoidectomy with colostomy)
Subjective Data
Date of Service: April 21, 2024
Patient states he has some sweating/chills. He denies nausea or vomiting. He is hungry. He has some leakage of his ostomy.
Objective Data
-
Vital Signs
Temp Pulse Resp BP Pulse Ox
100.0 F 47 18 149/84 96
04/21/24 08:45 04/21/24 07:52 04/21/24 07:52 04/21/24 07:52 04/21/24 07:52
Intake & Output
04/20/24 04/21/24 04/22/24
06:59 06:59 06:59
Intake Total 1685 / 1685 3310 / 3310
Output Total 400 / 400 1080 / 1080
Balance 1285 / 1285 2230 / 2230
Intake:
Oral fluids 480 / 480 960 / 960
IV fluids (Total) 1000 / 1000 2000 / 1999
IV piggybacks 205 / 205 350 / 350
Output:
Drain Output (Total)
Right Oniel-Graham
Urine, Voided 400 / 400 1050 / 1050
Other:
Number of approximated MODERATE 1
amounts of urine
Number of approximated LARGE 3 2
amounts of urine
Lab Results
04/21/24 06:31
04/21/24 06:31
Physical Exam
-
General: No Acute Distress and AOx3
Abdomen: Soft, Non Distended, Tender (mild around incisions and drain) and Other (drain with serous output, colostomy warm and pink with output. Midline incision with some leakage. )
Skin: Warm and Dry
--- NOTE | 2024-04-21 09:51 | WOUNDNOTE ---
[facility] RN note: Patient s/p ostomy surgery 04/16/24.
See H&P for complete history.
PMH: psoriasis.
Ostomy location and type: Colostomy L side. Stoma pink, oval 1 1/4 x 1 3/4inches and budded. Peristomal skin intact. Psoriasis noted on abdomen.
Instructed patient ostomy pouch emptying and changing appliance using David wafer #[id number], Cesar seal and [place] pouch # [id number]. Colostomy teaching folder given. Gave patient the [employer] website for donated ostomy supplies if needed. He
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
Ostomy supplies ordered from [facility] and at bedside.
Will follow as needed.
[2024-04-21] MEDS: ROXICODONE 10 MG PO (10:00)
--- NOTE | 2024-04-21 13:10 | CM ---
Reviewed the chart notes. Diet advanced to low residue. CM continues to be available to patient/family and is monitoring medical plan for needs at discharge.
Plan: Discharge to home when medically stable. Patient has [place] Medicaid.
[2024-04-21] MEDS: MYCAMINE 105 MG IV (15:16)
[2024-04-21 15:22] VITALS: BP 127/73
[2024-04-21] MEDS: ROXICODONE 5 MG PO (16:33)
[2024-04-21] MEDS: LOVENOX 40 MG SC (17:20)
[2024-04-21 23:34] VITALS: BP 130/86
[2024-04-22] MEDS: ROXICODONE 10 MG PO ×3 (03:32→14:28)
[2024-04-22] MEDS: ZOSYN 50 IV ×2 (05:49→12:07)
[2024-04-22 06:00] VITALS: BMI 24.9
--- NOTE | 2024-04-22 07:08 | WOUNDNOTE ---
[facility] RN note: Faxed patient signed [employer] starter kit request for patient.
[2024-04-22 07:50] VITALS: BP 149/83
[2024-04-22] MEDS: NSS (PRESERVATIVE FREE) 10 ML IV (08:41)
[2024-04-22] MEDS: PROTONIX IV 40 MG IV (08:41)
--- NOTE | 2024-04-22 09:46 | W.PN.CRS1 ---
Today's Communication / Plan
-
possible d/c later today
dispo planning
colostomy teaching
Assessment/Plan
-
48 yo male on chronic opioids for back pain who presented with perforated colon/peritonitis from diverticulitis vs stercoral colitis now POD #4 Les's procedure
AFVSS
OR wound cx with ecoli, enterococcus, strep and yeast
--Continue low residue diet
--Analgesics/antiemetics prn
--C/W IV abx with zosyn and micafungin- will convert to po as an outpatient
--Wound/ostomy nurse consult for stoma care - have asked to change this dressing this AM
--OOB/Ambulate. PT eval.
--SCD's/Lovenox for VTE ppx
--BOB drain removed
--Possible d/c later today. Will discuss with case management and see how patient feels this afternoon. Will also need more ostomy teaching.
Subjective Data
Procedure
04/16/24 Les's resection (sigmoidectomy with colostomy)
Subjective Data
Date of Service: April 22, 2024
Patient states he feels sweaty today. He otherwise has pain but it is controlled. He denies nausea or vomiting. He is tolerating a diet.
Objective Data
-
Vital Signs
Temp Pulse Resp BP Pulse Ox
97.9 F 58 16 149/83 97
04/22/24 07:50 04/22/24 07:50 04/22/24 07:50 04/22/24 07:50 04/22/24 07:50
Intake & Output
04/21/24 04/22/24 04/23/24
06:59 06:59 06:59
Intake Total 3310 / 3310 2220 / 2220
Output Total 1080 / 1080 845 / 845
Balance 2230 / 2230 1375 / 1375
Intake:
Oral fluids 960 / 960 1920 / 1920
IV fluids (Total) 1999
IV piggybacks 350 / 350 300 / 300
Output:
Liquid stool amount 170 / 170
Colostomy 170 / 170
Drain Output (Total)
Right Oniel-Graham
Urine, Voided 1050 / 1050 675 / 675
Other:
Number of approximated MODERATE 1 2
amounts of urine
Number of approximated LARGE 2 1
amounts of urine
Lab Results
04/21/24 06:31
04/21/24 06:31
Physical Exam
-
General: No Acute Distress and AOx3
Abdomen: Soft, Non Distended, Tender (mild around incision) and Other (colostomy warm and pink with function, BOB serous)
Skin: Warm and Dry
Wound: Dressing Changed (gavino removed)
--- NOTE | 2024-04-22 11:45 | WOUNDNOTE ---
[facility] RN note: Reinstructed patient colostomy appliance change and pouch emptying. Patient emptied his pouch and he changed his pouch with verbal instruction and minimal assistance using David wafer # [id number], Cesar seal and David pouch # [id number].
Ostomy supplies and colostomy teaching folder in room. Also gave patient samples of a 1 piece pouch to try which may be less expensive than a 2 piece ([facility] pouch # [id number]). Suggested patient use a mirror if needed while applying his
wafer/appliance. Stoma pink, oval and budded. Peristomal skin with scattered psoriasis (not new) rash. Instructed patient to call his insurance to inquire about where to order supplies and suggested he apply online for donated supplies from the
[employer] web site. Mid abdominal dressing supplies given. Discussed with RN Judy who will instruct patient local abdominal incisional wound care. Instructed patient hand hygiene with local care. Patient for possible discharge to home today.
--- NOTE | 2024-04-22 11:45 | WOUNDNOTE ---
[facility] RN note: Reinstructed patient colostomy appliance change and pouch emptying. Patient emptied his pouch and he changed his pouch with verbal instruction and minimal assistance using David wafer # [id number], Cesar seal and [place] pouch # [id number].
Ostomy supplies and colostomy teaching folder in room. Also gave patient samples of a 1 piece pouch to try which may be less expensive than a 2 piece ([facility] pouch # [id number]). Suggested patient use a mirror if needed while applying his
wafer/appliance. Stoma pink, oval and budded. Peristomal skin with scattered psoriasis (not new) rash. Instructed patient to call his insurance to inquire about where to order supplies and suggested he apply online for donated supplies from the
[employer] web site. Mid abdominal dressing supplies given. Discussed with HARINDER Kim who will instruct patient local abdominal incisional wound care. Instructed patient hand hygiene with local care. Patient for possible discharge to home today.
[2024-04-22] MEDS: FLUSH (NSS) 2 FLUSH IV (12:08)
--- NOTE | 2024-04-22 14:40 | CM ---
Reviewed the chart notes and spoke with the patient at the bedside. Patient has been able to successfully change ostomy bag. The patient is for discharge today. The patient's friend will provide transportation home. CM continues to be available
to patient/family and is monitoring medical plan for needs at discharge.
Plan: Discharge to home today.
--- NOTE | 2024-04-22 15:00 | W.DS.TRANS ---
DC Summary - [employer] L[employer]
-
Discharge Instructions:
Discharge Diagnosis/Procedures perforated diverticulitis vs stercoral colitis
Diet Low Residue
Activity No strenuous activity
Additional Activity No lifting over 10lbs (gallon of milk)
Driving Restrictions Not until seen by your Dr
Bathing Restrictions OK to Shower
Wound Care Change midline incision with gauze and paper
tape daily and as needed. Okay to leave open to
air when showering. Do not use soap on
incision and let the water run off of incision.
Cover the prior drain site with gauze and paper
tape until it seals, usually in about 3 to 5
days. It may have some drainage which is normal
.
Instructions: Low-fiber diet
Stand-Alone Forms:
Changes to Home Medications: Yes
Discharge Medications:
DC Medications w/original date entered in [employer]
doxycycline hyclate 100 mg tablet 100 mg PO BID 7 days #14 tabs 04/22/24
oxycodone 5 mg tablet 5 mg PO Q4HPRN PRN pain - max dose 30mg/day #20 tabs 04/22/24
Home Medication Changes
doxycycline hyclate 100 mg tablet 100 mg PO BID 7 days #14 tabs 04/22/24
Pending Results: Yes
[2024-04-22 15:40] VITALS: BP 182/96
== END 2024-04-22 18:20 | disposition home or self-care (01) | DRG 330 ==
LOC: 2 SOUTH 18:35
PROVIDERS: Nurse Practitioner; Registered Nurse; Surgery; ADMITTING PHYSICIAN Surgery; ATTENDING PHYSICIAN Surgery; EMERGENCY PHYSICIAN Emergency Medicine
PROC: 0D1N0Z4 Bypass Sigmoid Colon to Cutaneous, Open Approach (ICD-10-PCS; 2024-04-16)
PROC: 0DBN0ZZ Excision of Sigmoid Colon, Open Approach (ICD-10-PCS; 2024-04-16)
DX: K57.20 Diverticulitis of large intestine with perforation and abscess without bleeding (principal); D62 Acute posthemorrhagic anemia; K74.00 Hepatic fibrosis, unspecified
CPT/HCPCS: 88307; 74177; 80048; 80053; 82962; 83690; 83735; 85014; 85018; 85025; 85027; 87070; 87075; 87077; 87186; 87205; 96361; 96365; 96375; 96376; 97116; 97162; 97530; 99284; Q9967

== ENCOUNTER 2024-06-10 20:17 | Emergency (ER) | payer BC, SELFPAY ==
[2024-06-10 20:22] VITALS: BP 148/100
[2024-06-10 20:25] VITALS: BP 148/100
[2024-06-10 20:27] VITALS: BMI 22.8
--- NOTE | 2024-06-10 20:37 | ED.GENMED ---
History of Present Illness
General
Chief Complaint: Chest Pain
Source: patient
Exam Limitations: none
Time Seen by Provider: 06/10/24 20:21
Nursing documentation reviewed up to this point in time: agreed with
History of Present Illness
History of Present Illness:
Patient recently treated at [facility] secondary to perforated diverticulum in April 2024, resulting in colostomy bag, presents to ED secondary to sudden onset of left arm/shoulder numbness sensation, as he was leaving his friend's house
this evening. Patient walked back into his friend's house with concern that he may be having heart attack. 911 was called immediately. When arrived at scene, patient was found to be mildly confused and tachycardic. Upon arrival to ED patient
states that his symptoms have resolved. Patient feels as though he may have had a panic attack, which he does experience multiple times a month, with similar arm discomfort. Patient has been prescribed Xanax in the past by his primary care
physician. In addition, patient states that since the surgery, he has not been eating well. Given today, patient reports having only had Parfait for meal with couple cups of coffee. Patient reports feeling extremely hungry at this time. Denies
chest pain. Denies shortness of breath. Denies nausea or vomiting. Denies recent illness. Denies recent change in medications or diet. Denies family history of heart disease. Patient is an ex drinker, without last alcohol intake in March
2023. Patient does not smoke.
Past History
Past History
ED Past Medical History: None
ED Past Surgical History: Orthopedic
Review of Systems
Review of Systems
Allergies reviewed?: Yes
All Other Systems: ROS reviewed and negative except as documented in HPI and ROS
Constitutional: Reports no symptoms
EENT: Reports no symptoms
Respiratory: Reports no symptoms
Cardiac: Reports no symptoms
ABD/GI: Reports no symptoms
Musculoskeletal: Reports other (arm numbness)
Skin: Reports no symptoms
Neurological: Reports no symptoms
Phy Exam
Physical Exam
Physical Exam:
Physical Exam
General: no apparent distress, not acutely ill. afebrile
Head: nc/at. eomi
Neck: supple. no meningeal signs.
Heart: s1/s2 regular rate and rhythm, no murmur.
Lungs: no acute respiratory distress. clear bilaterally
Abdomen: normal bowel sounds. not tender.
Neuro: alert and oriented x 3. no focal neurological deficits
Skin: no rash
Psychiatric: well kept. interactive and cooperative
Extremities: no edema. no calf tenderness.
Scores
Heart Score for Chest Pain Patients
STEMI patient?: Not applicable
Course
Orders/Labs/Results
Orders:
Orders
06/10/24 20:30
Electrocardiogram (*1) Urgent
Reason for Study: Chest Pain
Cardiac Monitoring- Treatment ONCE
EKG- Treatment ONCE
IV Insert/Care/Rem.- Treatment PRN
O2 Therapy [RESP] Urgent
Titrate/Wean O2 to maintain O2 sat greater than (%): 90
Special Instructions: Maintain sats >/=90%
Pulse Ox/spot Check [RESP] Urgent
Quantity: 1
Special Instructions: ON ROOM AIR
06/10/24 20:32
Complete Blood Count/With Diff Urgent
Comprehensive Metabolic Panel Urgent
Magnesium Urgent
Troponin I Urgent
06/10/24 20:34
D-Dimer Urgent
TSH Urgent
0.9% Sodium Chloride 1000 ml [Nss] 1,000 ml IV BOLUS
Abnormal Lab Results
06/10/24
20:32
RBC 4.41 L 10^6/uL
(4.70-6.10)
Hgb 12.8 L g/dL
(13.0-18.0)
Hct 38.0 L %
(39.0-52.0)
Absolute Neuts (auto) 7.2 H 10^3/uL
(1.4-6.5)
Absolute Lymphs (auto) 1.1 L 10^3/uL
(1.2-3.4)
Neutrophils % 79.4 H %
(42.2-75.2)
Lymphocytes % 12.6 L %
(20.5-51.1)
Potassium 3.4 L mmol/L
(3.5-5.1)
Carbon Dioxide 20 L mmol/L
(22-30)
Glucose 175 H mg/dl
(70-99)
Alkaline Phosphatase 184 H U/L
(38-126)
Albumin 5.3 H g/dl
(3.5-5.0)
06/10/24 20:32
06/10/24 20:32
Vital Signs
Initial and Last Documented VS:
Initial Vital Signs
Temp Pulse Resp BP Pulse Ox
97.7 F 88 12 148/100 99
06/10/24 20:22 06/10/24 20:22 06/10/24 20:22 06/10/24 20:22 06/10/24 20:22
Last Documented Vital Signs
Temp Pulse Resp BP Pulse Ox
97.7 F 89 16 143/99 97
06/10/24 20:22 06/10/24 21:49 06/10/24 21:49 06/10/24 21:49 06/10/24 21:30
MDM/Problems Addressed
MDM/Problems Addressed:
Patient remains asymptomatic during observation ED, along with unremarkable workup. Patient's presenting symptoms less likely ACS, but likely secondary to dehydration along with recurrent panic attack. At this time, patient feels comfortable going
home and knows exactly what happened today, and will follow-up with his primary care physician upon reaching home, which I believe is reasonable.
*EKG
Interpreted by ED Provider?: Yes
EKG Intrepretation Date: 06/10/24
Heart Rate: 93
Rate: normal
Rhythm: sinus
[place]: normal axis
Interval: normal interval
*Critical Care Note
Total Time (30-74mins, 75-104mins- exclusive of procedures): Not Applicable
ED Attending Note
-
Portions of this chart may have been created with voice recognition software.� Occasional wrong word or��sound alike� substitutions may have occurred due to the inherent limitations of voice recognition software.
Discharge Plan
Departure
Patient Disposition: Home (Routine Discharge)
Date of Disposition: 06/10/24
Time of Disposition: 21:48
Patient with high blood pressure during this ER visit?: Yes
Condition: Good
Discharge Problem:
Panic attack
Instructions: Panic Attack ED
Prescriptions:
No Action
oxycodone 5 mg tablet
5 mg PO Q4HPRN PRN (Reason: pain - max dose 30mg/day) Qty: 20 0RF
Rx Instructions:
04/16/24: filled #180 tablets/30 days upply on 04/10/24 at [facility] #[id number]
doxycycline hyclate 100 mg tablet
100 mg PO BID 7 Days Qty: 14 0RF
Referrals:
NONE,* [Family Provider] -
Activity Restrictions/Additional Instructions:
As discussed, please follow-up with your primary care physician with any further concerns.
Interventions
Interventions:
*Risk Screen - Suicide Last Done: 06/10/24 20:28
*General Assessment Last Done: 06/10/24 20:44
*Neglect/Abuse Screening Last Done: 06/10/24 20:28
ED- Fall Risk Assessment Last Done: 06/10/24 20:44
*ED COVID-19 Vaccine History Last Done: 06/10/24 20:44
*Nursing Disposition Last Done: 06/10/24 21:54
ED- Cardiac Assessment Last Done: 06/10/24 20:44
Discharge Date and Time
Discharge Date/Time: 06/10/24 21:56
Print Language: VIETNAMESE
[2024-06-10] MEDS: NSS 1000 IV (20:40)
[2024-06-10 20:41] LABS: % Basophils 0.4 % (0-2); % Eosinophils 2.2 % (0-6); % Immature Granulocytes 0.3 % (0-0.5); % Lymphocytes 12.6 % (20.5-51.1); % Monocytes 5.1 % (1.7-9.3); % Neutrophils 79.4 % (42.2-75.2); Absolute Eosinophils 0.2 10^3/uL (0-0.7); Absolute Lymphocytes 1.1 10^3/uL (1.2-3.4); Absolute Monocytes 0.5 10^3/uL (0.1-0.6); Absolute Neutrophils 7.2 10^3/uL (1.4-6.5); Hemoglobin 12.8 g/dL (13.0-18.0); Mean Corp Hgb Conc. 33.7 g/dL (33.0-37.0); Mean Corpuscular Volume 86.2 fL (80.0-94.0); Mean Platelet Volume 9.1 fL (7.4-10.4); Nucleated Red Blood Cells % 0 % (-); Platelet Count 231 10^3/uL (130-400); Red Blood Cell Count 4.41 10^6/uL (4.70-6.10); Red Cell Dist. Width 13.7 % (11.5-14.5); White Blood Cell Count 9.1 10^3/uL (4.8-10.8)
[2024-06-10 20:59] LABS: D-Dimer < 0.27 ug/mlFEU (0.00-0.50)
[2024-06-10 21:00] VITALS: BP 121/87
[2024-06-10 21:01] LABS: ALT (SGPT) 40 U/L (0-50); AST (SGOT) 27 U/L (17-59); Albumin 5.3 g/dl (3.5-5.0); Alkaline Phosphatase 184 U/L (38-126); Blood Urea Nitrogen 10 mg/dl (9-20); Calcium 9.6 mg/dl (8.4-10.2); Carbon Dioxide 20 mmol/L (22-30); Chloride 100 mmol/L (98-107); Estimated Creatinine Clearance 121 ml/min; Glucose 175 mg/dl (70-99); Magnesium 2.1 mg/dl (1.6-2.3); Potassium 3.4 mmol/L (3.5-5.1); Sodium 137 mmol/L (135-145); Total Bilirubin 0.6 mg/dl (0.2-1.3); Total Protein 8.1 g/dl (6.3-8.2); eGFR > 60.00
[2024-06-10 21:12] LABS: Troponin I < 0.012 ng/ml
[2024-06-10 21:29] LABS: TSH 1.82 uIU/ml (0.47-4.68)
[2024-06-10 21:49] VITALS: BP 143/99
== END 2024-06-10 21:56 | disposition home or self-care (01) ==
LOC: EMR 20:17
PROVIDERS: EMERGENCY PHYSICIAN Emergency Medicine
DX: F41.0 Panic disorder [episodic paroxysmal anxiety] (principal); R07.89 Other chest pain; Z93.3 Colostomy status
CPT/HCPCS: 99283; 96360; 80053; 83735; 84443; 84484; 85025; 85379; 93005